=== PATIENT | male | born 2005 | race Two or more races ===

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

== ENCOUNTER 2024-01-20 10:25 | Emergency (ER) | payer OTHER ==
[~2024-01-20] VITALS: Ht 185.4 cm; Wt 116.0 kg
[2024-01-20 10:40] VITALS: TEMP 98.6
[2024-01-20 12:21] VITALS: BP 134/72; PULSE 76; RESP 18
[2024-01-20] MEDS ORDERED: IBUP-1554 PO (12:33)
[2024-01-20] MEDS ORDERED: CEPH-558 PO (12:33)
[2024-01-20] MEDS ORDERED: DOXY-354 PO (12:33)
== END 2024-01-20 12:57 | disposition home or self-care (01) ==
LOC: EMS 10:25
DX: H00.031 Abscess of right upper eyelid (principal)
CPT/HCPCS: 10160; 99284; Z7502

== ENCOUNTER 2024-01-22 13:10 | Emergency (ER) | payer OTHER ==
[~2024-01-22] VITALS: Ht 180.3 cm; Wt 115.9 kg
[~2024-01-22 13:10] MED LIST: CEPH-558 PO; DOXY-354 PO; IBUP-1554 PO
[2024-01-22 13:33] VITALS: TEMP 98.3
[2024-01-22 15:00] VITALS: BP 125/75; PULSE 75; RESP 16
== END 2024-01-22 15:07 | disposition home or self-care (01) ==
LOC: EMS 13:10
DX: H00.034 Abscess of left upper eyelid (principal)
CPT/HCPCS: 99281; Z7502

== ENCOUNTER 2024-04-10 08:20 | Emergency (ER) | payer OTHER ==
[~2024-04-10] VITALS: Ht 180.3 cm; Wt 113.6 kg
[2024-04-10] MEDS: LIDOCAINE 1% 10 ML VIAL ID ONE (09:02)
[2024-04-10] MEDS: CEPHALEXIN MONOHYDRATE 500 MG CAPSULE PO ONE (09:02)
[2024-04-10] MEDS: SULFAMETHOX/TRIMETH DS 800-160 MG/TABLET PO ONE (09:02)
[2024-04-10 09:34] VITALS: TEMP 98.3
[2024-04-10 09:45] VITALS: BP 121/75; PULSE 90; RESP 16
[2024-04-10] MEDS ORDERED: CEPH-558 PO (09:50)
[2024-04-10] MEDS ORDERED: SULF-261 PO (09:50)
== END 2024-04-10 10:18 | disposition home or self-care (01) ==
LOC: EMS 08:20
DX: H00.034 Abscess of left upper eyelid (principal)
CPT/HCPCS: 99283; 10060; J3490

== ENCOUNTER 2024-09-19 03:09 | Emergency (ER) | payer OTHER ==
[~2024-09-19] VITALS: Ht 180.3 cm; Wt 115.9 kg
[~2024-09-19 03:09] MED LIST changes: +SULF-261 PO
[2024-09-19 03:36] VITALS: BP 127/94; PULSE 90; RESP 18; TEMP 98.6; O2SAT 99
[2024-09-19 04:14] LABS: BASOPHILS % (AUTO) 0.6 % (0.0-2.0); EOSINOPHILS % (AUTO) 0.7 % (1.0-6.0); HEMATOCRIT 47.9 % (41-53); HEMOGLOBIN 16.4 g/dL (13.5-17.5); LYMPHOCYTES # (AUTO) 2.5 K/uL (1.0-4.8); LYMPHOCYTES % (AUTO) 15.8 % (22.0-44.0); MEAN CORPUSCULAR HEMOGLOBIN 30.4 pg (26.0-34.0); MEAN CORPUSCULAR HGB CONC 34.2 G/dL (31.0-37.0); MEAN CORPUSCULAR VOLUME 89 fL (80-100); MONOCYTES % (AUTO) 6.1 % (2.0-9.0); NEUTROPHILS % (AUTO) 76.8 % (40.0-70.0); PLATELET COUNT (AUTO) 371 K/uL (150-450); RED BLOOD CELL COUNT(AUTO) 5.39 MIL/uL (4.50-5.90); RED CELL DISTRIBUTION WIDTH 12.5 % (11.5-14.5); WHITE BLOOD COUNT (AUTO) 15.7 K/uL (4.5-11.0)
[2024-09-19 04:26] LABS: ANION GAP 10 mmol/L (8-16); CALCIUM, TOTAL 9.5 mg/dL (8.8-10.5); CARBON DIOXIDE 29 mmol/L (22-29); CHLORIDE 99 mmol/L (98-107); CREATININE 1.02 mg/dL (0.60-1.30); GLOMERULAR FILTR. RATE CALC > 60 mL/min (>60); GLUCOSE,RANDOM 113 mg/dL (70-110); LIPASE 22 U/L (16-77); POTASSIUM 3.7 mmol/L (3.5-5.1); SODIUM SERUM 138 mmol/L (136-145); UREA NITROGEN, BLOOD 9 mg/dL (7-18)
== END 2024-09-19 08:08 | disposition left against medical advice (07) ==
LOC: EMS 03:10
DX: R10.31 Right lower quadrant pain (principal); Z53.21 Procedure and treatment not carried out due to patient leaving prior to being seen by health care provider
CPT/HCPCS: 80048; 83690; 85025